=== PATIENT | female | born 1995 | race Caucasian/White ===

== ENCOUNTER 2025-03-31 00:56 | Day surgery (SDC) | payer OTHER, SELFPAY ==
[2025-03-17 13:57] VITALS: BMI 21.8
--- NOTE | 2025-03-17 14:00 | PC.NURSE ---
Report to the Outpatient Waiting Room, entrance under the green pavilion located off [facility], at time _0630_ on date _[id number]_. Planned Procedure Time: _0830_.? Time changes happen often and if your time is changed the preop area will call you the afternoon before. - You and your visitor will be asked to self-screen and do not enter if you have any COVID symptoms. Please call surgeon if you need to reschedule. - A mask is optional within the hospital at this time. Patients may have clear liquids (water, carbonated beverages, clear teas, apple juice) until 3 hours prior to surgery with a maximum of 20 ounces. - No food from midnight until time of surgery and no smoking, or chewing tobacco (or any form of nicotine). No chewing gum, candy or mints. Take only the following medications with a SIP of water on the morning of surgery: ___None____ DO NOT STOP ANY OF YOUR OTHER PRESCRIPTION MEDICATIONS PRIOR TO SURGERY EXCEPT THE FOLLOWING Hold all vitamins and supplements for 3 days per anesthesiologist. Medications to discontinue per physician Date to take last dose Please no make-up, nail hebrew, hairspray, perfume, deodorant, or body powder the day of surgery.? No jewelry (including any body piercings) or valuables the day of surgery, leave them at home.? Please take a shower or bath the night before, or the morning of, surgery with an antibacterial soap.? Wear comfortable, loose fitting clothing.? - Jewelry must be removed prior to entering the operating room.? Rings and piercings that are not removed may be cut off. - The hospital will not accept responsibility for valuables.? - Please leave all valuables, including medications, at home the day of surgery. If you are going home after surgery, a licensed sweeper driver must drive you home.? - NO public transportation without another adult if you receive anesthesia. - We recommend that an adult stay with you for 24 hours following discharge. - We also recommend that you do not drive, make important decision, drink alcoholic beverages, or take any drugs that were not prescribed by your health care provider for at least 24 hours after your discharge time. Follow any additional instructions given to you from your surgeon. Telephone instructions given to __Vida__and asked if any additional questions and then verbalized understanding. Patient advised to call surgeon office or pre surgery nurse liaison [phone] if any additional questions.
--- NOTE | 2025-03-29 07:35 | PM.IMHP ---
H&P: HPI History of Present Illness Date/Time: 03/29/25 07:35 Chief Complaint: Excessive heavy bleeding Narrative: This is a 30-year-old 2 para 2 admitted for hysteroscopy/dilatation curettage/Kailey ablation secondary to bleeding. She has a partner she is to his vasectomy and she understands this is not a form of control. Her complaints are bleeding which has been refractory to medical therapy. She is not a fan of hormone manipulation and tosses understands this will permanently make her unable to have children safely. Risks and benefits reviewed including not exclusive of aspiration, bleeding, transfusion, perforation injury to bowel, bladder, ureter, or other internal organs with need for open laparotomy. She received the [employer] handout entitled hysteroscopy and dilatation curettage respectively. She received the Kailey handout. She had all questions answered. She asked to proceed. Review of Systems Review of Systems: All systems reviewed & are unremarkable except as noted in HPI and below PMFSH Family History Family History Other Asthma Diabetes mellitus Family history of congestive heart failure Social History Social History Smoking status: Never smoker Alcohol intake: current Living arrangements: with family Spiritual care concerns: No Meds Home Medications and Allergies Home Medications ?Medication ?Instructions ?Recorded ?Confirmed ?Type multivitamin (Daily Multi-Vitamin 1 tablet PO DAILY 03/17/25 03/17/25 History tablet) Allergies Allergy/AdvReac Type Severity Reaction Status Date / Time No Known Allergies Allergy Unverified 03/17/25 13:49 Exam Const: General: cooperative, healthy appearing and comfortable Nutritional Appearance: average body habitus Orientation/consciousness: oriented to person, oriented to place and oriented to time Resp: Effort & Inspection: normal respiratory effort Cardio: Rate: regular rate Rhythm: regular rhythm Heart sounds: S1 normal heart sound present and S2 normal heart sound present GI: Inspection: normal to inspection : External Female Exam: normal external appearance Speculum Exam - Vagina: normal appearance of the vagina Speculum Exam - Cervix: normal appearance of the cervix Bimanual exam- vagina & uterus: non-tender Bimanual Exam- Adnexa, other: normal adnexae Assessment and Plan Assessment and plan (1) Excessive bleeding: Code(s): R58 - Hemorrhage, not elsewhere classified Status: Acute Plan Proceed with hysteroscopy/dilatation curettage/Kailey ablation
[2025-03-31 06:35] VITALS: BP 97/54; PULSE 78; RESP 16; TEMP 36.4; O2SAT 100
--- NOTE | 2025-03-31 06:47 | WPDHPUPDATE1 ---
History and Physical Update Update Date/Time: 03/31/25 06:47 History and Physical has been reviewed, including an updated exam of the patient. There are NO changes in the patient's condition. Risks, benefits, and alternatives have been discussed and questions answered. Patient agrees to proceed with procedure.
[2025-03-31] MEDS: ACETAMINOPHEN 500 MG TABLET 1000 MG PO (06:50)
[2025-03-31] MEDS: LACTATED RINGERS 1,000 ML 30 ML IV CONT (06:55)
[2025-03-31 07:00] LABS: Hematocrit 41.0 % (37.0-47.0); Hemoglobin 13.3 g/dL (12.0-15.0)
--- NOTE | 2025-03-31 07:21 | P.PNAN_ITS ---
Anes - Initial Pre Proc Eval Procedure: Operation Date: 03/31/25 08:30 Proposed Procedures p Hysteroscopy Dilation and Curettage with Kailey Endometrial Ablation - Tuan Lares MD Date/Time: 03/31/25 07:21 Surgeon: Tuan Lares MD Pre Op Diagnosis: excessive bleeding Patient Data Age: 30 Gender: F Height: 1.7 m Weight: 65.2 kg Last Vital Signs Temp 36.4 C 03/31/25 06:35 Pulse 78 03/31/25 06:35 Resp 16 03/31/25 06:35 BP 97/54 L 03/31/25 06:35 Pulse Ox 100 03/31/25 06:35 O2 Del Method Room Air 03/31/25 06:35 Allergies Allergy/AdvReac Type Severity Reaction Status Date / Time No Known Allergies Allergy Unverified 03/17/25 13:49 Home Medications ?Medication ?Instructions ?Recorded ?Confirmed ?Type multivitamin (Daily Multi-Vitamin 1 tablet PO DAILY 03/31/25 History tablet) hydrocodone 5 mg-acetaminophen 325 1 tablet PO Q4H PRN pain #20 tabs 03/31/25 Rx mg tablet Laboratory Tests 03/31/25 06:49 Hgb 13.3 g/dL (12.0-15.0) Hct 41.0 % (37.0-47.0) Patient hx anesthesia problems: none Family hx anesthesia problems: none Results Review: All pre-operative results and documents have been reviewed as part of the pre- operative evaluation. [facility] Past Medical History Medical History (Updated 03/31/25 @ 07:21 by Daniel Siu DO) Anemia Anxiety Surgical History Surgical History (Updated 03/31/25 @ 07:21 by Daniel Siu DO) History of cholecystectomy Family History Family History Other Asthma Diabetes mellitus Family history of congestive heart failure Social History Social History Smoking status: Never smoker Alcohol intake: current Living arrangements: with family Spiritual care concerns: No Anes - Eval Final PreProcedure Day of Procedure 03/31/25 07:21 Patient weight: normal Heart: regular rate and rhythm Lungs: clear to auscultation and normal air movement Airway: Mallampati scale class II Neurological: alert and oriented Last oral intake: >/= 8 hours ASA classification: II Emergent: no Anesthetic plan: proceed Anesthesia type and monitoring: general GIVS and standard monitoring Results Review: All pre-operative results and documents have been reviewed as part of the pre- operative evaluation. Informed Consent: The patient's anesthetic plan and its attendant risks and benefits were discussed with the patient/family/POA. Questions were solicited and answers provided to the satisfaction of the patient/family/POA.
[2025-03-31 07:55] LABS: BEDSIDEPREGUCG Negative (Negative)
[2025-03-31] MEDS: LIDOCAINE 1% LOCAL INJ 10 ML VIAL INFILTRATE (08:35)
[2025-03-31] MEDS: KETOROLAC 15 MG/ML VIAL (*BKC) IV PUSH (08:55)
--- NOTE | 2025-03-31 08:59 | P.OP_ITS ---
Procedure Note - Detailed Date of Procedure 03/31/25 Pre-op Diagnosis excessive bleeding Post-op Diagnosis Same Procedure Performed Hysteroscopy/dilatation curettage/Kailey ablation Surgeon Tuan Lares MD Anesthesia MAC and Local Indications 30-year-old female with excessive heavy bleeding Findings Uterus sounded to 8cm. Thick endometrial tissue but no evidence polyp or other abnormality Description of Procedure Patient was prepped draped in the sterile fashion placed in the dorsal lithotomy position. Under excellent IV sedation weighted speculum placed in posterior fornix. Anterior lip of the cervix grasped with a single-tooth tenaculum. 2.5cc 1% xylocaine anesthesia placed at 2, 4, 8:00 a.m. of cervix. Serial dilatation with fragmented dilators performed followed by passage of the 5mm vi sualizing hysteroscope using normal saline as visualizing medium. Thick endometrial tissue could be seen. No evidence of polyp or other definitive abnormality seen each fallopian tube os could be seen. Uterus was scraped over the entire 360? until good grating sound was heard those instruments withdrawn and the Kailey instrument placed at the appropriate depth. The uterus was then burned for 120seconds. The instruments withdrawn and the hysteroscope reinserted. Excellent burn was noted photo documentation undertaken. The instruments withdrawn the patient went to in satisfactory condition. All sponge, needle, instrument counts were correct. There were no immediate complications Estimated Blood Loss 5 Drains No Packing No Pathology Yes Complications No immediate complications Condition Stable Disposition PACU
[2025-03-31 09:02] VITALS: BP 99/59; PULSE 75; RESP 15; O2SAT 99
--- NOTE | 2025-03-31 09:05 | S_PTH ---
PATIENT: Vida Pantoja LOC: [facility] U#:[id number] AGE/SX: 30/F ROOM: RE03/31/[address]: Tuan Lares MD : [id number] BED: DIS: 03/31/2025 SPEC #: [id number] RECD: 03/31/25 10:16 STATUS: [place] REQ #: [id number] MENDY: 03/31/25 09:[address]: Tuan Benson DEPT: [facility] Surgical RECD BY: Senait Aguiar ENTERED: 03/31/25 10:17 SP TYPE: Surgical OTHR DR: Soraya Vogel MD Tissues: A - Endometrial Curettings Procedures: Hematoxylin and Eosin Stain Gross and Microscopic Level 4
[2025-03-31 09:30] VITALS: BP 105/65; PULSE 62; RESP 15; O2SAT 99
[2025-03-31 10:00] VITALS: BP 100/65; PULSE 64; RESP 15
== END 2025-03-31 10:05 | disposition home or self-care (01) ==
PROVIDERS: PCP Family Medicine; Visit Provider Obstetrics & Gynecology
PROC: 0U5B8ZZ Destruction of Endometrium, Via Natural or Artificial Opening Endoscopic (ICD-10-PCS; CPT 58563; principal; 2025-03-31 08:30)
DX: N92.0 Excessive and frequent menstruation with regular cycle (principal); D64.9 Anemia, unspecified; F41.9 Anxiety disorder, unspecified; Z79.891 Long term (current) use of opiate analgesic; Z90.49 Acquired absence of other specified parts of digestive tract; Z82.49 Family history of ischemic heart disease and other diseases of the circulatory system
CPT/HCPCS: 58563; 36415; 85014; 85018; 88305; A9270; J1885; J2003; J2250; J2405; J2704; J3010; J7120